=== PATIENT | female | born 1990 | race Caucasian/White ===

== ENCOUNTER → 2018-05-27 10:22 | Outpatient (CLI) | payer BC, SELFPAY ==
[2018-05-27 13:51] LABS: Chlamydia Trachomatis by PCR Negative (Negative); Neisserai gonorrhoeae by PCR Negative (Negative); Probe Check PASS; Sample Adequacy Control PASS; Specimen Processing Control PASS; Trichomonas Vag DNA by PCR Negative (Negative)
[2018-05-28 09:38] LABS: HIV - WCH Non-Reactive (Nonreactive)
[2018-05-29 16:25] LABS: HPV Reflexed? NOT INDICATED
[2018-05-30 00:18] LABS: Rapid Plasmin Reagin (RPR) NONREACTIVE (NONREACTIVE)
== END ==
PROVIDERS: Visit Provider Obstetrics & Gynecology
DX: Z12.4 Encounter for screening for malignant neoplasm of cervix (principal); Z11.3 Encounter for screening for infections with a predominantly sexual mode of transmission
CPT/HCPCS: 36415; 86592; 86703; 87491; 87591; 87661; 88175; G0145